=== PATIENT | female | born 1995 | race Asian ===

== ENCOUNTER → 2019-01-18 | Outpatient (REF) | payer OTHER | LOC: M SFHCLERA 14:19 | PROVIDERS: ATTEND Physician Assistant | DX: R10.30 Lower abdominal pain, unspecified (principal) ==

== ENCOUNTER → 2019-01-18 | Outpatient (CLI) | payer OTHER ==
--- NOTE | 2019-01-18 14:17 | REP ---
Clinical: Lower abdominal pain. Technique: Single supine view of the abdomen and pelvis. Findings: Bowel gas pattern is nonspecific. No organomegaly. No obvious abnormal calcifications. Mild levoconvex scoliosis. Impression: Nonspecific bowel gas pattern. No obvious abnormality. Electronically Signed by Good [place] MD 01/18/2019 02:09 P
--- NOTE | 2019-01-18 14:22 | REP ---
LUMBAR SPINE, FIVE VIEWS: HISTORY: Back pain. There is no acute fracture or subluxation. The intervertebral discs are normal in height. The facet joints are normal in appearance. There is asymmetry in the S1 sacral ala with right being larger than the left. IMPRESSION: There is no acute fracture or subluxation. Electronically Signed by Filemon Moore MD 01/18/2019 02:24 P
== END ==
LOC: M LRY 13:21
PROVIDERS: ATTEND Physician Assistant
DX: R10.30 Lower abdominal pain, unspecified (principal); M54.5 Low back pain

== ENCOUNTER → 2019-03-29 | Outpatient (REF) | payer OTHER | LOC: M SFHCLERA 11:50 | PROVIDERS: ATTEND Physician Assistant | DX: R19.7 Diarrhea, unspecified (principal) ==